=== PATIENT | female | born 1990 | race African-American/Black ===

== ENCOUNTER → 2018-01-20 13:11 | Outpatient (CLI) | payer MEDICAID, SELFPAY ==
[2018-01-20 13:45] LABS: Absolute Lymphocyte Count 2.03 X10^3/ul (0.83-4.51); Absolute Neutrophil Count 2.1 X10^3/uL (2.0-7.7); Basophil# 0.01 X10^3/uL; Basophil% 0.2 % (0-1); Eosinophil# 0.03 X10^3/uL; Eosinophils% 0.7 % (0-5); Hematocrit 35.1 % (37-47); Hemoglobin 11.5 g/dl (12.0-15.0); Lymphocyte # 2.03 X10^3/ul (4.0); Mean Corp Hgb Conc 32.8 g/gl (32-36); Mean Corpuscular Volume 88.4 fL (81-99); Monocyte# 0.44 X10^3/uL; Monocyte% 9.5 % (0-10); Neutrophil % 45.6 % (47-70); POSITIVE COUNT NO; POSITIVE DIFFERENTIAL NO; POSITIVE MORPHOLOGY NO; Platelet Count 199 K/mm3 (150-450); RBC Distribution Width CV 12.5 % (11.6-14.6); RBC Distribution Width SD 39.9 fl (35.1-43.9); Red Blood Count 3.97 M/mm3 (4.2-5.4); White Blood Count 4.6 K/mm3 (4.4-11.0)
[2018-01-20 14:22] LABS: ALB/GLOB Ratio 1.1 RATIO (0.9-2.4); AST(SGOT) 18 U/L (15-37); Alanine Aminotransfer ALT/SGPT 16 U/L (13-56); Alkaline Phosphatase 67 U/L (45-117); Anion Gap 6 (5-15); BUN 9 mg/dL (7-18); BUN/Creat Ratio 14.7 RATIO (10-20); Calcium,Total 8.8 mg/dL (8.5-10.1); Chloride 106 mmol/L (98-107); Creatinine, Serum 0.61 mg/dL (0.55-1.02); EST Glomerular Filtration Rate 123 mL/min (>60); Est Glom Filt Rate - Afr Amer 148 mL/min (>60); Globulin 3.5 g/dL (2.2-4.2); Glucose 65 mg/dL (74-106); Potassium 3.1 mmol/L (3.5-5.1); Protein, Total 7.5 g/dL (6.4-8.2); Sodium Level 143 mmol/L (136-145)
== END ==
PROVIDERS: Visit Provider Psychiatry & Neurology Neurology
DX: R56.9 Unspecified convulsions (principal)
CPT/HCPCS: 36415; 80053; 82542; 85025

== ENCOUNTER 2018-02-02 08:50 | Emergency (ER) | payer MEDICAID, SELFPAY ==
[2018-02-02 08:52] VITALS: BP 130/99; PULSE 78; RESP 14; TEMP 36.7; O2SAT 100; BMI 18.8
[2018-02-02 09:30] LABS: Absolute Neutrophil Count 2.5 X10^3/uL (2.0-7.7); Eosinophil# 0.05 X10^3/uL; Eosinophils% 1.2 % (0-5); Mean Corp Hgb Conc 32.4 g/gl (32-36); Mean Corpuscular Hgb 28.3 pg (27.0-32.0); Mean Corpuscular Volume 87.3 fL (81-99); Mean Platelet Vol. 8.2 fl (6.2-12.0); Monocyte# 0.44 X10^3/uL; Monocyte% 10.8 % (0-10); Neutrophil # 2.48 X10^3/uL (2.7-7.7); POSITIVE COUNT NO; POSITIVE DIFFERENTIAL NO; POSITIVE MORPHOLOGY NO; Platelet Count 237 K/mm3 (150-450); RBC Distribution Width CV 13.1 % (11.6-14.6); Red Blood Count 4.24 M/mm3 (4.2-5.4); White Blood Count 4.1 K/mm3 (4.4-11.0)
[2018-02-02 09:42] LABS: Anion Gap 6 (5-15); BUN 11 mg/dL (7-18); BUN/Creat Ratio 16.2 RATIO (10-20); Calcium,Total 8.9 mg/dL (8.5-10.1); Chloride 109 mmol/L (98-107); Creatinine, Serum 0.68 mg/dL (0.55-1.02); EST Glomerular Filtration Rate 109 mL/min (>60); Est Glom Filt Rate - Afr Amer 132 mL/min (>60); Estimated Creatinine Clearance 93.92 ml/min; Glucose 80 mg/dL (74-106); Potassium 3.9 mmol/L (3.5-5.1); Sodium Level 139 mmol/L (136-145)
[2018-02-02 09:48] LABS: Pregnancy, Serum, hCG Quali. NEGATIVE Negative (0-9 Nonpreg)
--- NOTE | 2018-02-02 09:52 | ED.VISSUMM ---
- ER Visit Summary Date of Service: 02/02/18 Chief Complaint: [Seizure] History of Present Illness: The patient is a 27 F [presents to the emergency department with a seizure that occurred this morning. Seizure was witnessed by the boyfriend. Patient was in bed at the time and did not injure herself. Seizure apparently lasted about 3 minutes and was whole body tonic-clonic. Patient did not lose control of bowel or bladder. Patient did not bite her mouth or tongue. Patient has a history of recurrent seizures and tells me that she has 1 every couple months. Patient states she just last week had an appointment with her neurologist in [place] a Dr. Mejia who increased her Lamictal dose. Patient denies any recent illness. Patient denies any recent head injuries. Patient has been sleeping normally. Patient denies any illicit drug use. Patient denies alcohol use. Patient does not believe she is as she has not missed any periods but she does not take control.] Patient has been taking her medications regularly. Physical Examination: [HEENT-PERRLA, EOMI. Cranial nerves II through XII grossly intact. TMs clear. Mucous membranes moist. No adenopathy. No bite wounds to the tongue or mouth noted. Cardiovascular-regular rate and rhythm without murmur or ectopy Lungs-clear to auscultation, chest wall stable without crepitus or subcu emphysema Abdomen-normoactive bowel sounds, soft, nontender, no rebound or rigidity, no peritoneal signs. Neuro [id number] and heel to levin testing within normal limits, negative Romberg, negative for drift, fundi benign Extremities-intact ?4, normal range of motion, normal pulses, atraumatic] Test Results: [CBC with differential was normal. Chemistries were normal. HCG was negative.] Emergency Department Course and Treatment: [Patient was observed in the emergency department for a short time.] Treatment Plan: [Patient to follow-up with her neurologist.] Disposition: [Discharged home in stable condition. Patient to return if condition should worsen in any way.] Impression: [Seizure-recurrent] This note was generated with [employer] dictation software. It may contain incorrect words, spelling, and punctuation that were not noted in review of the chart prior to signing ED Disposition - Plan for ED Patient: Chief Complaint: Seizure Referrals: Sabrina Mejia [Primary Care Provider] -
--- NOTE | 2018-02-02 09:54 | ED.DEP ---
ED Disposition - Plan for ED Patient: Chief Complaint: Seizure Instructions: ED Seizure Recurrent Referrals: Sabrina Mejia [Primary Care Provider] - 3-5 Days
[2018-02-02 10:09] VITALS: BP 113/72; PULSE 70; RESP 16; O2SAT 100
--- NOTE | 2018-02-02 10:09 | ED.RN ---
THIS NURSE REVIEWED D/C INSTRUCTIONS WITH PT AND VISITOR. PT VERBALIZED UNDERSTANDING OF INSTRUCTIONS. IV D/C. IV CATHETER INTACT. PT TOLERATED WELL. PT DENIES FURTHER NEEDS OR QUESTIONS AT THIS TIME. PT AMBULATES FROM ROOM ON OWN WITHOUT ASSISTANCE FROM STAFF
== END 2018-02-02 10:10 | disposition home or self-care (01) ==
PROVIDERS: Emergency Provider Emergency Medicine; Family Provider Psychiatry & Neurology Neurology; PCP Psychiatry & Neurology Neurology
DX: G40.909 Epilepsy, unspecified, not intractable, without status epilepticus (principal); Z72.0 Tobacco use
CPT/HCPCS: 80048; 84703; 85025; 99285

== ENCOUNTER → 2018-02-20 09:42 | Outpatient (CLI) | payer MEDICAID, SELFPAY ==
--- NOTE | 2018-02-20 12:56 | EEG ---
- Electroencephalogram Date of service 02/20/18 History EEG is being done in this 27 yr F to rule out seizures EEG Description: This is an 18 channel EEG with 10-20 lead placement system. Bipolar montages, Referential and Circumferential montages were reviewed. Photic stimulation and Hyperventilation were performed. The posterior dominant background rhythm is 8 HZ synchronous, symmetric, reacting to eye opening and closing. Photo stimulation elicited normal driving response but no abnormal photoparoxysmal response, Hyperventilation did not elicit any abnormal photoparoxysmal response. Sleep was identified. There was no epileptiform discharges or electrographic seizures noted during this recording. EEG Interpretation This is a normal awake and asleep EEG. There is no epileptiform discharges or electrographic seizures noted during the record.
== END ==
PROVIDERS: Family Provider Psychiatry & Neurology Neurology; PCP Psychiatry & Neurology Neurology; Visit Provider Psychiatry & Neurology Neurology
DX: R56.9 Unspecified convulsions (principal)
CPT/HCPCS: 95819

== ENCOUNTER 2019-11-20 15:01 | Emergency (ER) | payer MEDICAID, SELFPAY ==
[2019-11-20 15:02] VITALS: BP 123/78; PULSE 91; RESP 18; TEMP 37.1; O2SAT 99; BMI 19.0
--- NOTE | 2019-11-20 16:49 | RAD_ITS ---
STUDY: X-RAY CHEST REASON FOR EXAM: Female, 29 years old. COUGH FEVER AND FACIAL SWELLING FOR 3 DAYS TECHNIQUE: Frontal and lateral views of the chest were performed COMPARISON: None. FINDINGS: The lungs are clear and expanded. There is no demonstrated pleural abnormality. Normal size heart. Normal mediastinum and florencia. Normal visualized pulmonary arteries. Normal visualized aortic arch and descending thoracic aorta. Normal visualized thoracic spine. Normal visualized ribs, clavicles, and shoulders. There is no demonstrated abnormality of the visualized soft tissue structures of the upper abdomen. RAD/Chest PA and Lateral IMPRESSION: Normal x-ray examination of the chest. Electronically Signed: Eduardo Woods, at 17:13 EST Tel , Service support ,
--- NOTE | 2019-11-20 17:03 | ED.VIS.FLU ---
History of Present Illness Chief Complaint: Cough Informant: Patient Known exposure: Yes - Daughter with flulike symptoms Onset: Days Context: Gradual Onset Timing: Continuous Associated Symptoms: Cough, Fever. Negative for: Sore throat Chest Pain: None Narrative: Patient is a 29-year-old female with history of seizure disorder presenting with flulike symptoms. Patient states she is had 3 days of cough, nasal congestion and facial swelling. States he feels like the right side of her face is swelling from all of her nasal congestion. Patient states she is been coughing up yellow phlegm. Her 3-year-old daughter recently had flulike symptoms and patient started having symptoms. Patient has had associated fever. She is been taking [id number] Tylenol and ibuprofen for symptomatic relief. She denies any dental pain, difficulty swallowing or sore throat. She has any chest pain, nausea, vomiting or abdominal pain. She denies any other symptoms at this time. Past Medical History - Allergies and Home Meds Allergies/Adverse Reactions: Allergies cephalexin monohydrate [From Keflex] Allergy (Verified 11/20/19 15:03) Chest tightness venom-honey bee [bee venom (honey bee)] Allergy (Verified 11/20/19 15:03) Chest tightness Primary Care Physician: Sabrina Mejia [Primary Care Provider] - Smoking Status: Current every day smoker Review of Systems General: Reports: Chills, Fever, Malaise. Denies: Sweats ENT: Reports: - - No congestion, right facial swelling Cardiovascular: Denies: Chest pain, Palpitations Respiratory: Reports: Cough, Sputum. Denies: Dyspnea, Dyspnea on exertion Gastrointestinal: Denies: Abdominal pain, Nausea, Vomiting, Diarrhea, Melena, Hematochezia Genitourinary: Denies: Dysuria, Hematuria, Frequency Skin: Denies: Rash Neurological: Denies: Headache, Weakness, Numbness Physical Exam Vital Signs/Narrative: Vital Signs Temp Pulse Resp BP Pulse Ox 11/20/19 15:02 98.7 F 91 18 123/78 H 99 Inital Vital Signs reviewed: Yes General: Well nourished, Well developed Head: Normocephalic, Atraumatic Eyes: Perrl, EOMI ENT: Moist mucous membranes, TM's clear, Sinus tenderness - Right ethmoid. Negative for: Rhinorrhea, Purulent Discharge Neck: Supple, Nontender, No lymphadenopathy Cardiovascular: Regular rate, Regular rhythm, No murmurs Respiratory: No distress, CTA bilaterally, No Stridor. Negative for: Rhonchi, Wheezing, Diminished Abdomen: Soft, Nontender, Nondistended, Normal bowel sounds Back: Nontender, Normal Inspection Extremities: Nontender, No edema Skin: Normal color, No rash Neurological: Alert, Oriented x3, Cranial nerves II-XII grossly intact, Normal Strength, Normal Sensation Psychological: Normal affect Diagnostic/Tx/Re-eval Chest X-Ray - ED: 2 View, Read by ED Physician, Read by Radiologist, No Acute Disease Clinical Impression(s) from Imaging Studies Chest X-Ray 11/20/19 16:49 IMPRESSION: Normal x-ray examination of the chest. Electronically Signed: Eduardo Woods, at 17:13 EST Tel , Service support , - Medical Decision Making Patient evaluated for 3 days of flulike illness as well as nasal pressure and some facial swelling. Patient appears nontoxic in no acute distress. She is not have any signs of a cutaneous abscess or dental pain. She has not had any sore throat or difficulty swallowing. I suspect her facial swelling is from inflammation of her sinuses associated with her viral illness. Flu swab is negative. Chest x-rays not show any acute infiltrate. Patient be treated symptomatically with decongestants, Flonase and Motrin. Patient is counseled on signs and symptoms requiring return to the emergency room. Patient verbalizes agreement and understand this plan. Patient discharged home in stable and improved condition. ED Disposition - Plan for ED Patient: Disposition: Home or Assisted Living Diagnosis: URI (upper respiratory infection) Instructions: VIRAL SYNDROME (Adult) Prescriptions: Fluticasone 0.05% [Flonase Nasal [place]] 2 spray NASAL DAILY 14 Days #1 nasal.sry Transmission Status: Received by [facility] Ibuprofen [Motrin] 600 mg PO Q6H PRN #20 tab PRN Reason: Pain Or Fever Transmission Status: Received by [facility] Guaifenesin/Dextromethorphan [Mucinex Dm ER 600-30 mg Tablet] 1 ea PO BID PRN #20 tab.er.12h PRN Reason: congestion Transmission Status: Received by [id number] Referrals: Sabrina Mejia [Primary Care Provider] -
[2019-11-20 18:25] VITALS: RESP 17; O2SAT 17
== END 2019-11-20 18:26 | disposition home or self-care (01) ==
PROVIDERS: Emergency Provider Emergency Medicine; PCP Psychiatry & Neurology Neurology
DX: J06.9 Acute upper respiratory infection, unspecified (principal); G40.909 Epilepsy, unspecified, not intractable, without status epilepticus; F17.200 Nicotine dependence, unspecified, uncomplicated
CPT/HCPCS: 71046; 87804; 99282

== ENCOUNTER → 2020-08-12 12:19 | Outpatient (CLI) | payer MEDICAID, SELFPAY ==
[2020-08-17 17:08] LABS: Lamotrigine (Lamictal) Level 4.4 ug/mL (2.0-20.0)
== END ==
PROVIDERS: PCP Psychiatry & Neurology Neurology; Visit Provider Psychiatry & Neurology Neurology
DX: R56.9 Unspecified convulsions (principal)
CPT/HCPCS: 36415; 82542

== ENCOUNTER → 2021-08-28 | Outpatient (CLI) | payer MEDICAID, SELFPAY ==
[2021-09-23 16:48] LABS: HPV Reflexed? NOT INDICATED
== END | disposition home or self-care (01) ==
LOC: LABSPEC 15:54
PROVIDERS: PCP Family Medicine; Referring Provider Family Medicine; Visit Provider Family Medicine
DX: Z12.4 Encounter for screening for malignant neoplasm of cervix (principal)
CPT/HCPCS: 88175; G0145

== ENCOUNTER 2023-01-28 19:10 | Emergency (ER) | payer MEDICAID, SELFPAY ==
[2023-01-28 19:11] VITALS: BP 125/76; PULSE 87; RESP 18; TEMP 37.8; O2SAT 100; BMI 17.6
--- NOTE | 2023-01-28 21:55 | ED.VIS.DENTA ---
HPI History of Present Illness Chief Complaint: Dental Informant: patient Narrative Narrative: Patient states she has been having dental problems for a long time. All her teeth are eroded down very low. She has an appointment with a dentist actually tomorrow. But over the last about 4 days she started to get more pain in the right lower jaw on the she is now getting a little swelling. She denies any fever although she has a low-grade elevation of her temperature here today. No nausea vomiting. No chest pain. No trouble eating or drinking other than some mild dental pain. [facility] Medical History Seizure Home Medications lamotrigine 100 mg tablet 100 mg PO BID seizures 07/08/16 [History Last Taken 07/07/16] dextromethorphan-guaifenesin 30 mg-600 mg tablet extended [id number] hr 1 ea PO BID PRN congestion ##20 11/20/19 [Rx Last Taken Unknown] ibuprofen 600 mg tablet 600 mg PO Q6H PRN Pain Or Fever #20 tabs 11/20/19 [Rx Last Taken Unknown] clindamycin HCl 300 mg capsule (Cleocin HCl) 300 mg PO Q6H #40 CAPSULES 01/28/23 [Rx Last Taken Unknown] naproxen 500 mg tablet 500 mg PO BID #14 tabs 01/28/23 [Rx Last Taken Unknown] Allergy/AdvReac Type Severity Reaction Status Date / Time cephalexin monohydrate Allergy Chest Verified 01/28/23 19:11 [From Keflex] tightness venom-honey bee Allergy Chest Verified 01/28/23 19:11 [bee venom (honey bee)] tightness Social History Smoking Status: Current every day smoker tobacco type: cigarettes ROS ROS ED Constitutional Constitutional ED: Denies chills, fever(s) or subjective Eyes Eyes: Denies change in vision ENT ENT ED: Reports other Details: See history of present illness ; Denies ear pain, rhinorrhea or sore throat Cardiovascular Cardiovascular: Denies chest pain Respiratory/Chest Respiratory/Chest: Denies cough Gastrointestinal Gastrointestinal: Denies nausea or vomiting Musculoskeletal Musculoskeletal: Denies neck pain Integumentary Denies rash Neurologic Neurologic: Denies headache(s) or weakness Hematologic/Lymphatic Hematologic/Lymphatic: Denies easy bleeding or easy bruising EXAM Physical Exam Narrative Exam Narrative: Patient awake alert nontoxic. She is talking on the phone when I walked in. Pleasant cooperative. HEENT. Does show a little bit of external swelling over the right lower anterior mandible. No abscess except externally. Her teeth are eroded down significantly in many areas of her mouth. The gum behind the swollen area is a little bit red. Motion the tongue is normal. Swallowing is normal. Floor the mouth is soft. No sign of Ludewig's angina. No sinus tenderness. Eyes show no pain with motion. No injection. Neck shows no lymphadenopathy or pain with motion Heart is regular. Lungs are clear bilaterally. Abdomen soft nontender Skin shows no rash. Const Vital Signs: 01/28/23 19:11 Temperature 100.1 F H Temperature Source Temporal Pulse Rate 87 Respiratory Rate 18 Blood Pressure 125/76 H Blood Pressure Mean 92 Pulse Ox 100 Oxygen Delivery Method Room Air MDM MDM MDM Narrative Medical decision making narrative: Patient will be started on antibiotics. We will use clindamycin as she has allergy to cephalosporin and possibly to penicillin although she is not sure. We will write for Naprosyn. She will see her dentist tomorrow as scheduled. Discharge Plan Triage Chief Complaint: Dental ED Provider: Williams Holbrook Dx/Rx/DC Orders Clinical Impression: Abscess, dental Instructions: ED Dental Abscess Prescriptions: New clindamycin HCl [Cleocin HCl] 300 mg capsule 300 mg PO Q6H Qty: 40 0RF naproxen 500 mg tablet 500 mg PO BID Qty: 14 0RF No Action lamotrigine 100 MG tablet 100 mg PO BID ibuprofen 600 MG tablet 600 mg PO Q6H PRN (Reason: Pain Or Fever) Qty: 20 0RF dextromethorphan-guaifenesin 1 EACH tablet extended release 12 hr 1 ea PO BID PRN (Reason: congestion) Qty: 20 0RF Primary Care Provider: Jonathan Zuniga Referrals: Jonathan Zuniga MD [Primary Care Provider] - Activity Restrictions/Additional Instructions: See your dentist as scheduled tomorrow Disposition Disposition: Home, Self Care
[2023-01-28] MEDS: Clindamycin HCl 150 MG Capsule 300 MG PO (22:09)
[2023-01-28] MEDS: Naproxen 500 MG Tablet PO (22:10)
== END 2023-01-28 22:12 | disposition home or self-care (01) ==
PROVIDERS: Emergency Provider Emergency Medicine; PCP Family Medicine; Visit Provider Emergency Medicine
DX: K04.7 Periapical abscess without sinus (principal); F17.210 Nicotine dependence, cigarettes, uncomplicated
CPT/HCPCS: 99283

== ENCOUNTER 2023-02-17 10:50 | Emergency (ER) | payer MEDICAID, SELFPAY ==
[2023-02-17 10:51] VITALS: BP 121/78; PULSE 95; RESP 16; TEMP 36.1; O2SAT 100; BMI 17.8
[2023-02-17] MEDS: Diphth,Pertuss(Acell),Tet Vac 0.5 ML Vial IM (11:52)
--- NOTE | 2023-02-17 11:58 | RAD_ITS ---
STUDY: X-RAY - LEFT SHOULDER REASON FOR EXAM: Female, 32 years old. Injury/Pain TECHNIQUE: 2 view(s) of the shoulder. COMPARISON: None. FINDINGS: Normal glenohumeral articulation. Normal acromioclavicular joint. Normal acromion. Normal humeral head and visualized proximal humerus. The soft tissue structures are unremarkable. Normal visualized pulmonary apex. RAD/Shoulder min 2 Views IMPRESSION: Normal x-ray examination of the shoulder. Electronically Signed: Giovanni Rae MD at 12:23 EDT ,
[2023-02-17] MEDS: Lidocaine 1% /Epi 1:100 (20ml) 20 ML Vial INFILT (12:04)
[2023-02-17 12:57] VITALS: BP 108/67; PULSE 66; RESP 18; O2SAT 98
[2023-02-17 14:09] VITALS: BP 94/57; PULSE 57; RESP 18; O2SAT 98
--- NOTE | 2023-02-17 14:52 | EX.ED.DYSGE1 ---
HPI History of Present Illness Chief Complaint: Seizure Informant: patient Onset/Context/Timing Onset: Today Context: Sudden Onset Timing: Intermittent Quality: Shaking Location: Generalized Worsened by: Nothing Relieved by: Nothing Narrative Narrative: Patient presents with seizure that occurred today. Patient has a history of seizures. Patient states she has been taking her antiepileptics as prescribed. Patient states that she remembers standing up and then waking up on the floor. Patient states her family witnessed the seizure and stated it was a generalized tonic-clonic seizure. Patient denies biting her tongue. Patient denies any incontinence of bowel or bladder. Patient did hit her head and has a laceration over her left eyebrow area. Patient also complains of pain in her left shoulder. Patient states her pain is worse with certain movements. Patient denies any paresthesias or weakness. [facility] Medical History Seizure Home Medications lamotrigine 100 mg tablet (Lamictal) 100 mg PO BID seizures 07/08/16 [History Last Taken 07/07/16] ibuprofen 600 mg tablet 600 mg PO Q6H PRN Pain Or Fever #20 tabs 11/20/19 [Rx Last Taken Unknown] naproxen 500 mg tablet 500 mg PO BID #14 tabs 01/28/23 [Rx Last Taken Unknown] Allergy/AdvReac Type Severity Reaction Status Date / Time cephalexin monohydrate Allergy Chest Verified 02/17/23 11:04 [From Keflex] tightness venom-honey bee Allergy Chest Verified 02/17/23 11:04 [bee venom (honey bee)] tightness Surgical History no surgical history no surgical history Social History Smoking Status: Current every day smoker tobacco type: cigarettes ROS ROS ED Constitutional Constitutional ED: Denies chills or fever(s) Eyes Eyes: Denies blurry vision or change in vision ENT ENT ED: Denies rhinorrhea or sore throat Cardiovascular Cardiovascular: Denies chest pain or palpitations Respiratory/Chest Respiratory/Chest: Denies cough or dyspnea Gastrointestinal Gastrointestinal: Denies nausea or vomiting Genitourinary Genitourinary ED: Denies dysuria or hematuria Musculoskeletal Musculoskeletal: Reports back pain; Denies neck pain Integumentary Denies abscess or rash Neurologic Neurologic: Reports headache(s); Denies weakness Allergic/Immunologic Allergic/Immunologic ED: Denies mouth swelling or urticaria EXAM Physical Exam Const Vital Signs: 02/17/23 10:51 02/17/23 12:57 02/17/23 14:09 Temperature 96.9 F L Temperature Source Temporal Pulse Rate 95 66 57 L Respiratory Rate 16 18 18 Blood Pressure 121/78 H 108/67 94/57 L Blood Pressure Mean 92 80 69 Pulse Ox 100 98 98 Oxygen Delivery Method Room Air Room Air Room Air Positive well nourished and well developed General Appearance ED: well developed and NAD HEENT HEENT Narrative: There is a 2 cm full-thickness linear laceration over the left eyebrow. There is moderate gapping of the wound margins. There is mild bleeding noted. There is no bony crepitance or step-off noted. Eyes PERRL and EOMs intact bilaterally Neck supple and no JVD Resp normal respiratory effort and clear to auscultation bilaterally Cardio regular rate and regular rhythm GI normal to inspection, nondistended, normoactive bowel sounds, non-tender and non-distended Palpation: soft Extremity Extremity Narrative: There is tenderness over the left shoulder. There is no bony crepitance or step-off. There is no obvious deformity noted. There is some range of motion but it was somewhat limited in all motions of the left shoulder secondary to pain. Strength is 5/5 bilaterally upper extremities. There are no sensory deficits noted. Radial pulses are equal bilaterally. Neuro oriented x3, CN's II-XII intact bilaterally and no sensory deficits noted Sensorium / Orientation: alert Motor Exam: strength 5/5 throughout Psych mental status grossly normal MDM MDM MDM Narrative Medical decision making narrative: Differential diagnosis includes seizure, closed head injury, shoulder contusion, shoulder dislocation, shoulder fracture, and shoulder sprain. X-rays of the left shoulder will be obtained to assess for shoulder dislocation and fracture. Radiography Diagnostic Testing: Clinical Impression(s) from Imaging Studies Shoulder X-Ray 02/17/23 11:58 IMPRESSION: Normal x-ray examination of the shoulder. Electronically Signed: Giovanni Rae MD at 12:23 EDT , X-rays of the left shoulder were obtained. There are 2 views. On my independent interpretation, there is no acute fracture. There is no dislocation. There is no soft tissue swelling. Radiologist also interpreted the x-rays and agrees. Treatment and Re-Evaluation :: Patient was given a tetanus booster. The wound was cleaned and irrigated with copious amounts of normal saline. The wound was anesthetized with 1% lidocaine with epinephrine locally. The wound was closed with 4 simple interrupted #5-0 nylon sutures under sterile technique. Patient tolerated the procedure well. Bacitracin dressing was applied. Patient was instructed to follow-up with her primary care physician in 5 days for wound recheck and suture removal. Patient was instructed to return if worse in any way. Patient understood and was agreeable with the plan. All questions were answered. Discharge Plan Triage Chief Complaint: Seizure ED Provider: Anatoliy Crooks Dx/Rx/DC Orders Clinical Impression: Eyebrow laceration, Seizure, Contusion of left shoulder, initial encounter Instructions: ED Contusion, Upper Extremity, ED Laceration: All Closures, ED Seizure, Recurrent (Adult) Prescriptions: No Action lamotrigine [Lamictal] 100 MG tablet 100 mg PO BID ibuprofen 600 MG tablet 600 mg PO Q6H PRN (Reason: Pain Or Fever) Qty: 20 0RF naproxen 500 mg tablet 500 mg PO BID Qty: 14 0RF Primary Care Provider: Jonathan Zuniga Referrals: Jonathan Zuniga MD [Primary Care Provider] - 5 Days for suture removal Disposition Disposition: Home, Self Care
--- NOTE | 2023-02-17 14:52 | EDS_ITS ---
HPI History of Present Illness Chief Complaint: Seizure [facility] Medical History Seizure Home Medications lamotrigine 100 mg tablet (Lamictal) 100 mg PO BID seizures 07/08/16 [History Last Taken 07/07/16] ibuprofen 600 mg tablet 600 mg PO Q6H PRN Pain Or Fever #20 tabs 11/20/19 [Rx Last Taken Unknown] naproxen 500 mg tablet 500 mg PO BID #14 tabs 01/28/23 [Rx Last Taken Unknown] Allergy/AdvReac Type Severity Reaction Status Date / Time cephalexin monohydrate Allergy Chest Verified 02/17/23 11:04 [From Keflex] tightness venom-honey bee Allergy Chest Verified 02/17/23 11:04 [bee venom (honey bee)] tightness Social History Smoking Status: Current every day smoker tobacco type: cigarettes EXAM Physical Exam Const Vital Signs: 02/17/23 10:51 02/17/23 12:57 02/17/23 14:09 Temperature 96.9 F L Temperature Source Temporal Pulse Rate 95 66 57 L Respiratory Rate 16 18 18 Blood Pressure 121/78 H 108/67 94/57 L Blood Pressure Mean 92 80 69 Pulse Ox 100 98 98 Oxygen Delivery Method Room Air Room Air Room Air MDM MDM Radiography Diagnostic Testing: Clinical Impression(s) from Imaging Studies Shoulder X-Ray 02/17/23 11:58 IMPRESSION: Normal x-ray examination of the shoulder. Electronically Signed: Giovanni Rae MD at 12:23 EDT , Discharge Plan Triage Chief Complaint: Seizure ED Provider: Anatoliy Crooks Dx/Rx/DC Orders Prescriptions: No Action lamotrigine [Lamictal] 100 MG tablet 100 mg PO BID ibuprofen 600 MG tablet 600 mg PO Q6H PRN (Reason: Pain Or Fever) Qty: 20 0RF naproxen 500 mg tablet 500 mg PO BID Qty: 14 0RF Primary Care Provider: Jonathan Zuniga Referrals: Jonathan Zuniga MD [Primary Care Provider] -
[2023-02-17 15:34] VITALS: BP 103/66; PULSE 68; RESP 18; O2SAT 100
== END 2023-02-17 15:36 | disposition home or self-care (01) ==
PROVIDERS: Emergency Provider Emergency Medicine; PCP Family Medicine; Visit Provider Emergency Medicine
DX: S01.112A Laceration without foreign body of left eyelid and periocular area, initial encounter (principal); R56.9 Unspecified convulsions; S40.012A Contusion of left shoulder, initial encounter; F17.210 Nicotine dependence, cigarettes, uncomplicated; Z79.899 Other long term (current) drug therapy; Z23 Encounter for immunization; X58.XXXA Exposure to other specified factors, initial encounter
CPT/HCPCS: 12011; 73030; 90471; 90715; 99283